=== PATIENT | male | born 1995 | race Two or more races ===

== ENCOUNTER 2017-05-27 23:14 | Emergency (ER) | payer SELFPAY ==
[~2017-05-27] VITALS: Ht 172.7 cm; Wt 63.5 kg
[2017-05-27 23:27] VITALS: BP 131/72
--- NOTE | 2017-05-27 23:39 | NUR ---
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 vss. ambulatory with steady gait. nad noted. nondiaporetic.
== END 2017-05-27 23:40 | disposition home or self-care (01) ==
LOC: ER 23:23
DX: K29.20 Alcoholic gastritis without bleeding (principal)
CPT/HCPCS: 99281; A4606; Z7610; Z7502

== ENCOUNTER 2024-12-07 00:57 | Emergency (ER) | payer OTHER ==
[~2024-12-07] VITALS: Ht 172.7 cm; Wt 86.2 kg
== END 2024-12-07 01:41 ==
LOC: ER 00:58
DX: S60.121A Contusion of right index finger with damage to nail, initial encounter (principal); X58.XXXA Exposure to other specified factors, initial encounter; Y93.89 Activity, other specified; Y92.89 Other specified places as the place of occurrence of the external cause; Y99.8 Other external cause status